=== PATIENT | male | born 1965 | race Caucasian/White ===

== ENCOUNTER 2017-05-03 12:46 | Inpatient (IN) | payer BC, OTHER ==
[~2017-05-03] VITALS: Ht 167.6 cm; Wt 102.0 kg
[2017-05-03] VITALS (23 sets, daily range): BP systolic 97–132; BP diastolic 45–88
[2017-05-03] MEDS ORDERED: METOPROLOL TARTRATE 1MG/1ML-5ML VIAL IV ONE ×3 (13:00→13:45)
[2017-05-03] MEDS ORDERED: SODIUM CHLORIDE 0.9% 1,000 ML IV ONE (13:00)
[2017-05-03] MEDS ORDERED: MORPHINE SULFATE 4 MG/ML SYRG IV ONE (13:00)
[2017-05-03] MEDS ORDERED: ONDANSETRON HCL 4 MG/2 ML VIAL ONE (13:01)
[2017-05-03] MEDS ORDERED: MORPHINE SULFATE 4 MG/ML SYRG ONE (13:01)
[2017-05-03] MEDS ORDERED: HEPARIN SODIUM (PORCINE) 5000 UNITS/ML 1ML VIAL IV ONE (13:15)
[2017-05-03] MEDS ORDERED: NITROGLYCERIN 50MG/250ML 250 ML IV ONE (13:19)
[2017-05-03 13:22] LABS: Basophils # (auto) 0.1 uL; Basophils % (auto) 0.7 % (0.0-2.0); CONDITION Y; DEFINITIVE SEE PRINTOUT; Eosinophils # (auto) 0.1 uL; Eosinophils % (auto) 1.5 % (0.0-7.0); Hematocrit 51.7 % (41.0-53.0); Hemoglobin 18.3 g/dL (13.5-17.5); Lymphocytes # (auto) 1.9 uL; Lymphocytes % (auto) 18.6 % (10.0-50.0); Mean Corpuscular Hemoglobin 33.6 pg (28.0-32.0); Mean Corpuscular Hgb Conc. 35.4 g/dL (32.0-36.0); Mean Platelet Volume 7.2 fL (7.4-10.4); Monocytes # (auto) 0.6 uL; Monocytes % (auto) 6.3 % (0.0-12.0); Neutrophils # (auto) 7.3 uL; Neutrophils % (auto) 72.9 % (37.0-80.0); Platelet Count (auto) 289 10^3/uL (140-450); Red Cell Distribution Width 12.7 % (11.6-16.0)
[2017-05-03] MEDS: NITROGLYCERIN 50MG/250ML 250 ML IV SCH (13:30)
[2017-05-03] MEDS ORDERED: IODIXANOL 320MG/ML 100ML BTL IV ONE (13:33)
[2017-05-03] MEDS ORDERED: LIDOCAINE 2%HCL (LOCAL ANESTH.) INJ 20ML MDV ONE ×2 (13:34→13:49)
[2017-05-03] MEDS ORDERED: fentaNYL CITRATE 100 MCG/2 ML VL ONE (13:36)
[2017-05-03] MEDS ORDERED: MIDAZOLAM HCL 1MG/1ML-2 ML VIAL ONE ×2 (13:36→13:50)
[2017-05-03] MEDS ORDERED: SODIUM CHL 0.9% 50 ML ONE (13:36)
[2017-05-03] MEDS ORDERED: ANGIOMAX 250 MG VIAL IV ONE (13:36)
[2017-05-03] MEDS ORDERED: NITROGLYCERIN 50MG/250ML 250 ML IV SCH (13:45)
[2017-05-03] MEDS ORDERED: ONDANSETRON HCL 4 MG/2 ML VIAL IV ONE (13:45)
[2017-05-03 13:54] LABS: Albumin 3.8 g/dL (3.4-5.0); Anion Gap 11 (5-15); Aspartate Aminotransferase 20 U/L (15-37); BUN/Creatinine Ratio 13.5; Blood Urea Nitrogen 13 mg/dL (7-18); Calcium 8.7 mg/dL (8.5-10.1); Carbon Dioxide 23 mmol/L (21-32); Chloride 106 mmol/L (98-107); GFR African American 105 mL/min; GFR Non-African American 87 mL/min; Glucose 109 mg/dL (74-106); Magnesium 2.1 mg/dL (1.6-2.6); Sodium 140 mmol/L (136-145)
[2017-05-03 13:55] LABS: Potassium 4.1 mmol/L (3.5-5.1)
[2017-05-03] MEDS ORDERED: EPTIFIBATIDE INJ (2MG/ML) 10ML VIAL IV ONE ×3 (13:59→14:18)
[2017-05-03 14:01] LABS: Alkaline Phosphatase 51 U/L (45-117); Bilirubin, Total 0.4 mg/dL (0.2-1.0); Total Protein 7.4 g/dL (6.4-8.2)
[2017-05-03] MEDS ORDERED: AMIODARONE HCL (50 MG/ ML) 3 ML VIAL IV ONE (14:04)
[2017-05-03] MEDS ORDERED: ATROPINE SULF 0.5 MG/5ML SYR ONE (14:24)
[2017-05-03 14:36] LABS: INR 0.94 (0.9-1.15); Prothrombin Time 10.2 sec (9.37-12.3)
[2017-05-03] MEDS ORDERED: NITROGLYCERIN 0.4 MG SL TAB SL PRN (15:15)
[2017-05-03] MEDS: SODIUM CHLORIDE 0.9% 1,000 ML IV SCH (15:15)
[2017-05-03] MEDS ORDERED: MORPHINE SULF INJ 2 MG/ML SYRINGE 1ML IV PRN (15:15)
[2017-05-03] MEDS ORDERED: CLOPIDOGREL 300 MG TAB PO ONE (15:15)
[2017-05-03] MEDS ORDERED: HYDR-531 PO (15:22)
[2017-05-03] MEDS ORDERED: CLOP75TA28 PO (15:22)
[2017-05-03] MEDS ORDERED: ATOR20TA PO (15:23)
[2017-05-03] MEDS ORDERED: AMIODARONE HCL 900 MG in DEXTROSE 500 ML IV SCH (15:30)
[2017-05-03 15:59] LABS: Cholesterol 222 mg/dL (< 200); HDL Cholesterol 53 mg/dL (40-59); LDL Cholesterol 151 mg/dL (< 100); Triglycerides 167 mg/dL (< 150)
[2017-05-03] MEDS: HYDROcodone-ACET 5/325MG TAB PO PRN (17:20)
[2017-05-03] MEDS: ATORVASTATIN 20 MG TAB PO SCH (21:32)
[2017-05-03] MEDS: AMIODARONE HCL 900 MG in DEXTROSE 500 ML IV SCH (21:33)
[2017-05-03] MEDS: FAMOTIDINE (10MG/ML) 2ML VL IV SCH (21:33)
[2017-05-04] VITALS (43 sets, daily range): BP systolic 106–141; BP diastolic 49–83
[2017-05-04] MEDS: MORPHINE SULF INJ 2 MG/ML SYRINGE 1ML IV PRN ×5 (02:05→23:19)
[2017-05-04 04:54] LABS: Basophils # (auto) 0 uL; Basophils % (auto) 0.4 % (0.0-2.0); CONDITION Y; Eosinophils # (auto) 0.2 uL; Eosinophils % (auto) 1.8 % (0.0-7.0); Hematocrit 47.1 % (41.0-53.0); Hemoglobin 16.3 g/dL (13.5-17.5); Lymphocytes # (auto) 1.9 uL; Lymphocytes % (auto) 17.9 % (10.0-50.0); Mean Corpuscular Hemoglobin 33.4 pg (28.0-32.0); Mean Corpuscular Hgb Conc. 34.6 g/dL (32.0-36.0); Mean Corpuscular Volume 96.7 fL (80.0-100.0); Mean Platelet Volume 7.5 fL (7.4-10.4); Monocytes # (auto) 0.7 uL; Monocytes % (auto) 6.7 % (0.0-12.0); Neutrophils # (auto) 7.8 uL; Neutrophils % (auto) 73.2 % (37.0-80.0); Platelet Count (auto) 295 10^3/uL (140-450); Red Cell Distribution Width 13.1 % (11.6-16.0); White Blood Cell 10.6 10^3/uL (4.4-10.8)
[2017-05-04 05:00] LABS: BUN/Creatinine Ratio 17.1; Calcium 8.3 mg/dL (8.5-10.1); Potassium 3.7 mmol/L (3.5-5.1)
[2017-05-04] MEDS: FAMOTIDINE (10MG/ML) 2ML VL IV SCH ×2 (09:16→21:27)
[2017-05-04] MEDS: METOPROLOL TARTRATE 25 MG TAB PO SCH ×2 (09:17→21:27)
[2017-05-04] MEDS: CLOPIDOGREL BISULFATE 75 MG TAB PO SCH (09:17)
[2017-05-04] MEDS: HYDROcodone-ACET 5/325MG TAB PO PRN ×3 (09:19→20:33)
[2017-05-04] MEDS ORDERED: ASPirin-EC 325mg tab PO ONE (12:45)
[2017-05-04] MEDS ORDERED: AMIODARONE HCL 200 MG TAB PO ONE (13:00)
[2017-05-04] MEDS: NITROGLYCERIN 50MG/250ML 250 ML IV SCH (13:45)
[2017-05-04] MEDS: SODIUM CHLORIDE 0.9% 1,000 ML IV SCH (15:15)
[2017-05-04] MEDS: ATORVASTATIN 20 MG TAB PO SCH (21:27)
[2017-05-04] MEDS: AMIODARONE HCL 900 MG in DEXTROSE 500 ML IV SCH (21:30)
[2017-05-04] MEDS ORDERED: TEMAZEPAM 15 MG CAP PO ONE (22:00)
[2017-05-05 04:43] VITALS: BP 101/58
[2017-05-05 07:15] LABS: Basophils # (auto) 0 uL; Basophils % (auto) 0.2 % (0.0-2.0); CONDITION Y; Eosinophils # (auto) 0.2 uL; Eosinophils % (auto) 2.1 % (0.0-7.0); Hematocrit 48.3 % (41.0-53.0); Hemoglobin 16.6 g/dL (13.5-17.5); Lymphocytes # (auto) 1.5 uL; Lymphocytes % (auto) 17.4 % (10.0-50.0); Mean Corpuscular Hemoglobin 33.3 pg (28.0-32.0); Mean Corpuscular Hgb Conc. 34.4 g/dL (32.0-36.0); Mean Corpuscular Volume 96.8 fL (80.0-100.0); Mean Platelet Volume 7.4 fL (7.4-10.4); Monocytes # (auto) 0.7 uL; Neutrophils # (auto) 6.1 uL; Neutrophils % (auto) 72.3 % (37.0-80.0); Platelet Count (auto) 274 10^3/uL (140-450); White Blood Cell 8.4 10^3/uL (4.4-10.8)
[2017-05-05 07:30] LABS: INR 0.96 (0.9-1.15); Prothrombin Time 10.5 sec (9.37-12.3)
[2017-05-05 07:45] LABS: Albumin 3.5 g/dL (3.4-5.0); BUN/Creatinine Ratio 11.6; Calcium 8.4 mg/dL (8.5-10.1); Magnesium 2.6 mg/dL (1.6-2.6)
[2017-05-05 07:47] LABS: Bilirubin, Total 0.5 mg/dL (0.2-1.0); Total Protein 6.6 g/dL (6.4-8.2)
[2017-05-05 08:12] VITALS: BP 114/71
[2017-05-05] MEDS: MORPHINE SULF INJ 2 MG/ML SYRINGE 1ML IV PRN (09:08)
[2017-05-05 09:51] VITALS: BP 114/71
[2017-05-05] MEDS ORDERED: AMIODARONE HCL 200 MG TAB PO SCH (10:00)
[2017-05-05] MEDS: FAMOTIDINE (10MG/ML) 2ML VL IV SCH (10:00)
[2017-05-05] MEDS: METOPROLOL TARTRATE 25 MG TAB PO SCH (10:00)
[2017-05-05] MEDS: CLOPIDOGREL BISULFATE 75 MG TAB PO SCH (10:00)
[2017-05-05] MEDS ORDERED: ASPirin-EC 325mg tab PO SCH (10:00)
== END 2017-05-05 10:45 | disposition home or self-care (01) | DRG 251 ==
LOC: EDBD 12:46 → ER 12:49 → OVERFLOW 12:50 → ICU WEST 14:56 → TELE-CENTR 05-04 22:28
PROVIDERS: ADMIT Internal Medicine; ATTEND Internal Medicine
PROC: 02703ZZ Dilation of Coronary Artery, One Artery, Percutaneous Approach (ICD-10-PCS; principal; 2017-05-03)
PROC: 02C03ZZ Extirpation of Matter from Coronary Artery, One Artery, Percutaneous Approach (ICD-10-PCS; 2017-05-03)
PROC: 4A023N7 Measurement of Cardiac Sampling and Pressure, Left Heart, Percutaneous Approach (ICD-10-PCS; 2017-05-03)
PROC: B41F1ZZ Fluoroscopy of Right Lower Extremity Arteries using Low Osmolar Contrast (ICD-10-PCS; 2017-05-03)
PROC: B2111ZZ Fluoroscopy of Multiple Coronary Arteries using Low Osmolar Contrast (ICD-10-PCS; 2017-05-03)
PROC: B2151ZZ Fluoroscopy of Left Heart using Low Osmolar Contrast (ICD-10-PCS; 2017-05-03)
DX: I21.09 ST elevation (STEMI) myocardial infarction involving other coronary artery of anterior wall (principal); I47.2 Ventricular tachycardia; I10 Essential (primary) hypertension; I25.10 Atherosclerotic heart disease of native coronary artery without angina pectoris; I25.82 Chronic total occlusion of coronary artery; Z79.82 Long term (current) use of aspirin; Z79.899 Other long term (current) drug therapy; Z82.49 Family history of ischemic heart disease and other diseases of the circulatory system; Z87.891 Personal history of nicotine dependence; Z71.89 Other specified counseling
CPT/HCPCS: 36415; 71010; 80048; 80053; 80061; 83036; 83735; 84443; 84484; 85025; 85610; 85730; 87081; 92920; 92973; 93005; 93458; 94761; 96374; 96375; 99152; J0461; J2250; J2405; J3490; Q9967